=== PATIENT | female | born 1985 | race Caucasian/White ===

== ENCOUNTER 2017-03-17 07:07 | Emergency (ER) | payer BC ==
[~2017-03-17] VITALS: Ht 165.1 cm; Wt 95.3 kg
--- NOTE | 2017-03-17 07:30 | PHYS DOC ---
Past Medical History Past Medical History: No Pertinent History, Endometriosis Past Surgical History: , Other Additional Past Surgical Histo: endometriosis Alcohol Use: None Drug Use: None Adult General Chief Complaint Chief Complaint: FLANK PAIN HPI HPI Patient is a 31 year old female presents to the emergency department with a history of right upper flank pain and right upper quadrant abdominal pain. Patient states she has a history of gallbladder problems in which she has seen Dr Martin for in the past. Patient states she ate spaghetti last night and the pain developed as a sharp pain in the back into the right upper abdominal area. Patient denies nausea or vomiting. She does states she has had diarrhea. Patient denies fever, chills, or constipation. Patient has not taken anything for the pain rates the pain 09/10 Review of Systems Review of Systems Constitutional: Denies fever or chills [] Eyes: Denies change in visual acuity, redness, or eye pain [] HENT: Denies nasal congestion or sore throat [] Respiratory: Denies cough or shortness of breath [] Cardiovascular: No additional information not addressed in HPI [] GI: right upper abdominal pain, with diarrhea denies nausea, vomiting, bloody stools or diarrhea [] : Denies dysuria or hematuria [] Musculoskeletal: right upper flank pain denies joint pain [] Integument: Denies rash or skin lesions [] Neurologic: Denies headache, focal weakness or sensory changes [] Endocrine: Denies polyuria or polydipsia [] Current Medications Current Medications Current Medications Medications (Trade) Dose Ordered Sig/[facility] Start Time Stop Time Status Last Admin Dose Admin Ketorolac Tromethamine (Toradol) 30 mg 1X ONCE 03/17/17 09:15 03/17/17 09:16 DC Pantoprazole Sodium (Protonix) 40 mg 1X ONCE 03/17/17 09:15 03/17/17 09:16 DC Allergies Allergies Allergies Coded Allergies Type Severity Reaction Last Updated Verified No Known Drug Allergies 03/17/17 No Physical Exam Physical Exam Constitutional: Well developed, well nourished, no acute distress, non-toxic appearance. [] HENT: Normocephalic, atraumatic, bilateral external ears normal, oropharynx moist, no oral exudates, nose normal. [] Eyes: PERRLA, EOMI, conjunctiva normal, no discharge. [] Neck: Normal range of motion, no tenderness, supple, no stridor. [] Cardiovascular:Heart rate regular rhythm, no murmur [] Lungs & Thorax: Bilateral breath sounds clear to auscultation [] Abdomen: Bowel sounds hypoactive, soft, no tenderness, no masses, no pulsatile masses. [] Skin: Warm, dry, no erythema, no rash. [] Back: No tenderness, no CVA tenderness. [] Extremities: No tenderness, no cyanosis, no clubbing, ROM intact, no edema. [] Neurologic: Alert and oriented X 3, normal motor function, normal sensory function, no focal deficits noted. [] Psychologic: Affect normal, judgement normal, mood normal. [] Current Patient Data Vital Signs Vital Signs Date Time Temp Pulse Resp B/P (MAP) Pulse Ox O2 Delivery O2 Flow Rate FiO2 03/17/17 07:19 98.1 94 16 134/85 (101) 99 Room Air 98.1 Lab Values Laboratory Tests Test 03/17/17 07:31 03/17/17 07:41 White Blood Count 7.8 x10^3/uL (4.0-11.0) Red Blood Count 4.96 x10^6/uL (3.50-5.40) Hemoglobin 14.6 g/dL (12.0-15.5) Hematocrit 43.0 % (36.0-47.0) Mean Corpuscular Volume 87 fL (79-100) Mean Corpuscular Hemoglobin 30 pg (25-35) Mean Corpuscular Hemoglobin Concent 34 g/dL (31-37) Red Cell Distribution Width 12.9 % (11.5-14.5) Platelet Count 277 x10^3/uL (140-400) Neutrophils (%) (Auto) 65 % (31-73) Lymphocytes (%) (Auto) 23 % (24-48) L Monocytes (%) (Auto) 8 % (0-9) Eosinophils (%) (Auto) 4 % (0-3) H Basophils (%) (Auto) 1 % (0-3) Neutrophils # (Auto) 5.0 x10^3uL (1.8-7.7) Lymphocytes # (Auto) 1.8 x10^3/uL (1.0-4.8) Monocytes # (Auto) 0.6 x10^3/uL (0.0-1.1) Eosinophils # (Auto) 0.3 x10^3/uL (0.0-0.7) Basophils # (Auto) 0.1 x10^3/uL (0.0-0.2) Urine Collection Type Void Urine Color Yellow Urine Clarity Clear Urine pH 5.5 Urine Specific [place] 1.020 Urine Protein Negative mg/dL (NEG-TRACE) Urine Glucose (UA) Negative mg/dL (NEG) Urine Ketones (Stick) Negative mg/dL (NEG) Urine Blood Negative (NEG) Urine Nitrite Negative (NEG) Urine Bilirubin Negative (NEG) Urine Urobilinogen Dipstick 0.2 mg/dL (0.2 mg/dL) Urine Leukocyte Esterase Negative (NEG) Urine RBC Occ /HPF (0-2) Urine WBC 1-4 /HPF (0-4) Urine Squamous Epithelial Cells Many /LPF Urine Bacteria Many /HPF (0-FEW) Urine Mucus Marked /LPF Sodium Level 139 mmol/L (136-145) Potassium Level 3.9 mmol/L (3.5-5.1) Chloride Level 105 mmol/L (98-107) Carbon Dioxide Level 25 mmol/L (21-32) Anion Gap 9 (6-14) Blood Urea Nitrogen 15 mg/dL (7-20) Creatinine 1.0 mg/dL (0.6-1.0) Estimated GFR (Cockcroft-Gault) 64.3 BUN/Creatinine Ratio 15 (6-20) Glucose Level 105 mg/dL (70-99) H Calcium Level 8.5 mg/dL (8.5-10.1) Total Bilirubin 0.7 mg/dL (0.2-1.0) Aspartate Amino Transferase (AST) 14 U/L (15-37) L Alanine Aminotransferase (ALT) 24 U/L (14-59) Alkaline Phosphatase 52 U/L (46-116) Total Protein 7.8 g/dL (6.4-8.2) Albumin 3.7 g/dL (3.4-5.0) Albumin/Globulin Ratio 0.9 (1.0-1.7) L Amylase Level 40 U/L (25-115) Lipase 141 U/L (73-393) POC Urine HCG, Qualitative Hcg negative (Negative) Laboratory Tests 03/17/17 07:31 Laboratory Tests 03/17/17 07:31 EKG EKG [] Radiology/Procedures Radiology/Procedures [facility] [address] [place] [address] IMAGING REPORT Signed PATIENT: DENISE PÉREZ ACCOUNT: [id number] : 1985 LOCATION: ER AGE: 31 SEX: F EXAM STATUS: REG ER ORD. PHYSICIAN: KATIE POSADA APRN REASON: RIGHT UPPER QUADRANT ABDOMINAL PAIN PROCEDURE: ABDOMEN LTD Limited sonogram of the right upper quadrant History: Right upper quadrant pain. Findings: The pancreas is homogeneous without focal enlargement. Multiple gallstones are seen within the gallbladder. The gallbladder is not abnormally distended. No abnormal gallbladder wall thickening is seen. No pericholecystic free fluid is evident. The liver is homogeneous and measures 15.9 cm in length. The extra hepatic bile duct measures 3 mm in caliber which is normal. The length of the right kidney is 11 cm. No hydronephrosis or renal mass or perinephric fluid collection is seen on this side. IMPRESSION: Cholelithiasis. DICTATED and SIGNED BY: SUKUMAR GREEN MD DATE: 03/17/17 08 CC: KATIE POSADA APRN; SAMY RODRIGUEZ MD ~ [] Course & Med Decision Making Course & Med Decision Making Pertinent Labs and Imaging studies reviewed. (See chart for details) Ultrasound positive for Cholelithiasis. Patient will be discharged home in stable condition with recommendations for protonix, and toradol for pain. Patient will also be encouraged to avoid fried greasy fatty foods. Recommended to followup with Dr Martin within the next week. Patient agrees with discharge instructions, treatment regimen and followup recommendations. Signs and symptoms to return to the emergency department has been provided. All questions and concerns have been answered at bedside. Dragon Disclaimer Dragon Disclaimer This electronic medical record was generated, in whole or in part, using a voice recognition dictation system. Departure Departure Impression: Primary Impression: Cholelithiasis Disposition: HOME, SELF-CARE Condition: STABLE Referrals: NON,STAFF (PCP) Patient Instructions: Cholelithiasis, [id number] Additional Instructions: Activity as tolerated Medication as prescribed Avoid fried greasy, fatty foods including cheese and milk. Followup with Dr Martin within the week Return to emergency department as needed for signs and symptoms that become worse. Scripts Pantoprazole Sodium (PROTONIX) 20 Mg Tablet. 1 TAB PO DAILY, #30 TAB Prov: KATIE POSADA APRN 03/17/17 Ketorolac Tromethamine (KETOROLAC TROMETHAMINE) 10 Mg Tablet 1 TAB PO TID Y for PAIN, #15 TAB Prov: KATIE POSADA APRN 03/17/17 Problem Qualifiers Primary Impression: Cholelithiasis Cholelithiasis location: other site Biliary obstruction: without biliary obstruction Qualified Codes: K80.80 - Other cholelithiasis without obstruction KATIE POSADA APRN Mar 17, 2017 07:30
[2017-03-17 07:49] LABS: BASO # 0.1 x10^3/uL (0.0-0.2); BASO % 1 % (0-3); EOS % 4 % (0-3); HEMOGLOBIN 14.6 g/dL (12.0-15.5); LYMPH # 1.8 x10^3/uL (1.0-4.8); LYMPH % 23 % (24-48); MEAN CORPUSCULAR HEMOGLOBIN 30 pg (25-35); MEAN CORPUSCULAR HGB CONC 34 g/dL (31-37); MEAN CORPUSCULAR VOLUME 87 fL (79-100); MONO % 8 % (0-9); NEUT % 65 % (31-73); PLATELET COUNT 277 x10^3/uL (140-400); RED BLOOD COUNT 4.96 x10^6/uL (3.50-5.40); RED CELL DISTRIBUTION WIDTH 12.9 % (11.5-14.5); WHITE BLOOD COUNT 7.8 x10^3/uL (4.0-11.0)
[2017-03-17 07:50] LABS: BILIRUBIN,URINE NEGATIVE (NEG); GLUCOSE,URINE NEGATIVE (NEG); NITRITE,URINE NEGATIVE (NEG); PH,URINE 5.5; PROTEIN,URINE NEGATIVE (NEG-TRACE); UROBILINOGEN,URINE 0.2 mg/dL (0.2 mg/dL)
[2017-03-17 07:58] LABS: BACTERIA,URINE MANY /HPF (0-FEW); RBC,URINE OCC /HPF (0-2); SQUAMOUS EPITHELIAL CELL,UR MANY /LPF
[2017-03-17 07:59] LABS: CALCIUM 8.5 mg/dL (8.5-10.1); GFR 64.3; POTASSIUM 3.9 mmol/L (3.5-5.1)
[2017-03-17 08:04] LABS: ALBUMIN 3.7 g/dL (3.4-5.0); ALBUMIN/GLOBULIN RATIO 0.9 (1.0-1.7); TOTAL BILIRUBIN 0.7 mg/dL (0.2-1.0); TOTAL PROTEIN 7.8 g/dL (6.4-8.2)
--- NOTE | 2017-03-17 08:47 | RAD ---
Limited sonogram of the right upper quadrant History: Right upper quadrant pain. Findings: The pancreas is homogeneous without focal enlargement. Multiple gallstones are seen within the gallbladder. The gallbladder is not abnormally distended. No abnormal gallbladder wall thickening is seen. No pericholecystic free fluid is evident. The liver is homogeneous and measures 15.9 cm in length. The extra hepatic bile duct measures 3 mm in caliber which is normal. The length of the right kidney is 11 cm. No hydronephrosis or renal mass or perinephric fluid collection is seen on this side. IMPRESSION: Cholelithiasis.
[2017-03-17] MEDS ORDERED: PANT20TA2 PO (09:11)
[2017-03-17] MEDS ORDERED: KETO10TA PO (09:11)
[2017-03-17] MEDS ORDERED: PANTOPRAZOLE 40 MG TABLET.DR. PO ONE (09:15)
[2017-03-17] MEDS ORDERED: KETOROLAC 30 MG/ML INJ. IV ONE (09:15)
[2017-03-17 09:20] VITALS: BP 117/74
== END 2017-03-17 09:50 | disposition home or self-care (01) ==
LOC: ER 07:07
DX: K80.80 Other cholelithiasis without obstruction (principal)
CPT/HCPCS: 36415; 76705; 80053; 81001; 81025; 82150; 83690; 85025; 87086; 96374; 99285; J1885

== ENCOUNTER 2017-04-03 05:57 | Day surgery (SDC) | payer BC ==
[~2017-04-03] VITALS: Ht 165.1 cm; Wt 97.1 kg
[~2017-04-03 05:57] MED LIST: KETO10TA PO; PANT20TA2 PO
[2017-04-03] MEDS ORDERED: GLUCAGON,HUMAN RECOMBINANT 1 MG/ML VIAL. ONE (06:06)
[2017-04-03] MEDS ORDERED: IOHEXOL 300 MG/ML 50 ML VIAL. ONE (06:06)
[2017-04-03] MEDS ORDERED: SURGICEL HEMOSTAT 4X8 EACH. ONE (06:06)
[2017-04-03] MEDS ORDERED: BUPIVAC MPF-EPI 0.5%-1:200000 30 ML VIAL. ONE (06:06)
[2017-04-03] MEDS ORDERED: SCOPOLAMINE 1.5MG PATCH. TD ONE (07:00)
[2017-04-03] MEDS ORDERED: ONDANSETRON PF 4 MG/2 ML VIAL. IV PRN (07:00)
[2017-04-03] MEDS ORDERED: LIDOCAINE 1% PF 2 ML VIAL. ID PRN (07:00)
[2017-04-03] MEDS ORDERED: IV RINGERS,LACTATED 1000ML 1,000 ML IV SCH (07:00)
[2017-04-03] MEDS ORDERED: MORPHINE SULFATE 2 MG/ML DISP.SYRIN. IV PRN (07:00)
[2017-04-03] MEDS ORDERED: PROCHLORPERAZINE 10 MG/2 ML VIAL. IV PRN (07:00)
[2017-04-03] MEDS ORDERED: HYDROmorphone 2 MG/ML VIAL IV PRN (07:00)
[2017-04-03] MEDS ORDERED: fentaNYL PF VIAL 100 MCG/2 ML VIAL IV PRN (07:00)
[2017-04-03 07:02] LABS: NEG OBC UR NEG; POS OBC UR POS
[2017-04-03] MEDS ORDERED: PROPOFOL 20 ML IV ONE ×2 (07:14→08:20)
[2017-04-03] MEDS ORDERED: ONDANSETRON PF 4 MG/2 ML VIAL. ONE (07:14)
[2017-04-03] MEDS ORDERED: DEXAMETHASONE SOD PHOS 20 MG/5 ML VIAL. ONE (07:15)
[2017-04-03] MEDS ORDERED: ROCURONIUM 50 MG/5 ML VIAL. ONE (07:15)
[2017-04-03] MEDS ORDERED: PROPOFOL 50 ML IV ONE (07:15)
[2017-04-03] MEDS ORDERED: MIDAZOLAM HCL/PF 2 MG/2 ML VIAL. ONE (07:16)
[2017-04-03] MEDS ORDERED: fentaNYL PF VIAL 100 MCG/2 ML VIAL ONE ×3 (07:20→07:57)
[2017-04-03] MEDS ORDERED: FAMOTIDINE 20 MG/2 ML VIAL ONE (07:44)
[2017-04-03] MEDS ORDERED: SEVOFLURANE 31 TO 60 MINUTES. IH ONE (07:44)
[2017-04-03] MEDS ORDERED: METOCLOPRAMIDE HCL 10 MG/2 ML VIAL. ONE (07:45)
[2017-04-03] MEDS ORDERED: diphenhydrAMINE 50 MG/ML VIAL ONE (07:47)
[2017-04-03] MEDS ORDERED: GLYCOPYRROLATE 1 MG/5 ML VIAL. ONE (08:11)
[2017-04-03] MEDS ORDERED: NEOSTIGMINE 10 MG/10 ML VIAL. ONE (08:11)
--- NOTE | 2017-04-03 08:43 | RAD ---
Indication intraoperative cholangiogram. Protocol study. Assess for potential complication. Assess for variant anatomy. Evaluate for potential choledocholithiasis. For members of the Department of surgery fluoroscopy was provided. 3 spot fluoroscopic images were obtained. Fluoroscopy time associated with the imaging was 10 seconds. Those intrahepatic radicles which are seen appear unremarkable. The common bile duct appears normal. No filling defects are seen. Contrast flows unremarkably into the duodenum. IMPRESSION:: Normal operative cholangiogram
[2017-04-03] MEDS: fentaNYL PF VIAL 100 MCG/2 ML VIAL IV PRN ×2 (08:58→09:22)
--- NOTE | 2017-04-03 09:01 | PDOC ---
BRIEF OPERATIVE NOTE Date: Apr 03, 2017 Pre-Op Diagnosis symptomatic cholelithiasis Post-Op Diagnosis same Procedure Performed l/s cholecystectomy with cholangiograms Surgeon Mario Sex [employer] Detective Maude Silverman [employer]IDE [employer] Anesthesia Type: General Blood Loss 15cc IV Fluid 750cc Specimens Obtained GB Findings normal grams Complications none OPerative Note [id number] LISSY WALLACE MD Apr 03, 2017 09:01
--- NOTE | 2017-04-03 09:02 | DISCH ---
DISCHARGE INSTRUCTIONS Condition on Discharge Condition on Discharge: Stable Activity After Discharge Activity Instructions for Disc: Activity as tolerated, Avoid exertion Lifting Instructions after Dis: No heavy lifting Driving Instructions after Dis: Do not drive (2-3 days) Diet after Discharge Diet after Discharge: Regular Wound Incision Care Wound/Incision Care: Ice to area for comfort Other wound/incision instructi: october shower Saturday LISSY WALLACE MD Apr 03, 2017 09:02
[2017-04-03] MEDS ORDERED: OXYC-323 PO (09:25)
--- NOTE | 2017-04-03 09:34 | OP ---
DATE OF SURGERY: 04/03/2017 DATE OF SERVICE: 04/03/2017 PREOPERATIVE DIAGNOSIS: Symptomatic cholelithiasis. POSTOPERATIVE DIAGNOSIS: Symptomatic cholelithiasis. PROCEDURE: Laparoscopic cholecystectomy with cholangiogram. SURGEON: Jim Wallace MD INSPECTOR AND TESTER: Maude Silverman CFA ANESTHESIA: General endotracheal. ESTIMATED BLOOD LOSS: 15 mL. IV FLUIDS: 750 mL. INDICATIONS: The patient is a 31-year-old with postprandial epigastric and right upper quadrant pain. Ultrasound shows stones. She is brought for cholecystectomy. OPERATIVE FINDINGS: The liver was smooth and sharp. The gallbladder was supple. Cholangiograms were normal. Visual inspection of the remainder of the abdomen failed to reveal obvious abnormalities. DESCRIPTION OF PROCEDURE: The patient brought to the operating suite, given a general endotracheal anesthetic and the abdomen prepped and draped in usual sterile fashion. A supraumbilical incision was infiltrated with 0.25% Marcaine with epinephrine and incised and a 5 mm Visiport was used to safely gain access into the abdominal cavity, taking care to avoid injury to abdominal contents. Pneumoperitoneum was established. Camera inserted and inspection carried out with results as noted above. With the table in reverse Trendelenburg rolled to the left, the epigastric and midclavicular ports were placed under direct vision. The lateral port location was used for an "alligator" grasper. The gallbladder was retracted superolaterally. The cystic artery presented somewhat anterolaterally and it was identified along with the cystic duct. The cystic artery was clipped and divided. The cystic duct was clipped on the gallbladder side. Cholangiograms were made. Those were normal. In light of this, the catheter was removed. The cystic duct was clipped x 3 and divided, taking care to avoid injury or compromise of the common duct. Gallbladder was then freed from the bed with cautery dissection. Good hemostasis was present. Table returned to level. Gallbladder delivered through the epigastric incision. Epigastric incision closed with interrupted 0 Vicryl suture. Intra-abdominal pressure decreased to 6 cm of water. No bleeding from the epigastric closure or from the midclavicular port site after its removal or from the location of the "alligator" grasper. Abdomen decompressed, camera slowly removed, no bleeding seen. Skin incisions closed with subcuticular 4-0 Monocryl. Steri-Strips and sterile dressing applied. The patient awakened from her anesthetic and taken to the recovery room in satisfactory condition. JIM WALLACE MD DR: SEVERINO/caridad JOB#: [id number] / [id number]
[2017-04-03] MEDS ORDERED: oxyCODONE/APAP 5/325 1 TAB TABLET PO PRN (09:45)
[2017-04-03 09:59] VITALS: BP 116/47
--- NOTE | 2017-04-04 17:28 | PATHOLOGY ---
PATHOLOGY REPORT * * * * * * * * FINAL DIAGNOSIS: Gallbladder, laparoscopic cholecystectomy: - Cholelithiasis. - Cholesterolosis, focal. - Chronic cholecystitis. COMMENT: There is no evidence of malignancy. (JPM:[email or web address]; 04/04/2017) REPORT ELECTRONICALLY SIGNED BY: Calos Luna M.D. DATE/TIME: 04/04/2017 17:27 * * * * * * * * GROSS PATHOLOGY: Received in formalin labeled "Shawna Gallardo, gallbladder sac with contents," is a 9.8 x 2.9 x 2.2 cm, intact gallbladder with dark blue to purple, highly vascular serosal surfaces. Opening the gallbladder reveals dark tellez, velvety mucosa, slightly rippled with yellow highlights, and an average wall thickness of 0.2 cm. Calculi are present, measuring 1.2-1.4 cm in maximum dimension, possessing a dark tellez color and feeling firm to the touch. No masses are noted grossly. Mold Presser sections from the body and fundus are submitted along with the proximal margin in cassette A1. (TSD; 04/03/2017) INITIAL CPT CODE(S): A; 38745 Professional services performed [place] [facility] [place] [address] Technical services performed by [facility] at [address] [place] [address], [facility] [address], [place] [address]. SPECIMEN(S) RECEIVED: A.Gallbladder sac with contents CLINICAL HISTORY: Symptomatic cholelithiasis PATIENT: SHAWNA GALLARDO /AGE: 11 1985 (Age: 31) PATIENT #: [id number] CASE #: SPECIMEN COLLECTION DATE: 04/03/2017 SPECIMEN RECEIVED DATE: 04/03/2017 [facility] - [address] [place] [address] - PHONE: [phone] * * * END OF REPORT * * *
== END 2017-04-03 11:04 | disposition home or self-care (01) ==
LOC: SURG 05:57
PROVIDERS: ATTEND Surgery
DX: K80.10 Calculus of gallbladder with chronic cholecystitis without obstruction (principal); Z83.3 Family history of diabetes mellitus; Z98.890 Other specified postprocedural states
CPT/HCPCS: 47563; 74300; 81025; 88304; C1769; J0690; J0780; J1100; J1200; J2250; J2405; J2704; J2710; J2765; J3010; J3490; J7030; J7120; Q9967; S0028; J1610